=== PATIENT | male | born 1950 | race Caucasian/White ===

== ENCOUNTER 2019-10-31 10:07 | Emergency (ER) | payer MEDICARE ==
[~2019-10-31] VITALS: Ht 157.5 cm; Wt 45.5 kg
[2019-10-31 10:10] VITALS: BP 125/62
[2019-10-31] MEDS ORDERED: LIDOcaine 5% patch TP STA (10:31)
[2019-10-31] MEDS ORDERED: IBUP-1984 PO (10:38)
[2019-10-31] MEDS ORDERED: TRIA15CR61 TP (10:38)
== END 2019-10-31 11:50 | disposition home or self-care (01) ==
LOC: ER 10:08
DX: M79.604 Pain in right leg (principal); L25.9 Unspecified contact dermatitis, unspecified cause; Z60.2 Problems related to living alone; Z79.899 Other long term (current) drug therapy
CPT/HCPCS: 72100; 99283